=== PATIENT | male | born 1955 | race Caucasian/White ===

== ENCOUNTER 2021-03-25 08:24 | Emergency (ER) | payer MEDICARE, OTHER, SELFPAY ==
[2021-03-25 08:40] VITALS: BP 158/74; PULSE 69; RESP 16; TEMP 36.6; O2SAT 100
--- NOTE | 2021-03-25 08:41 | ED.GENADULT ---
HPI - General Adult General Chief complaint: Medical Clearance Stated complaint: COVID Test tp Travel Time Seen by Provider: 03/25/21 08:41 Source: patient and RN notes reviewed Mode of arrival: ambulatory Limitations: no limitations History of Present Illness HPI narrative: 65-year-old male presents with complaints of needing to obtaining a COVID-19 swab to fly home to [facility]. Jose reports no symptoms and wanting a [id number]. Denies cough or chest congestion. No Rhinorrhea and nasal congestion. Denies fevers. No nausea, vomiting, and abdominal pain. Tolerating po intake well. Denies chest pain, coughing up blood, facial pain, and rash. The patient reports he have not been diagnosed with COVID-19. The patient reports he received 2 [employer] COVID-19 vaccines. The patient reports he is not waiting for the results of a COVID-19 lab test. The patient reports he do not have weakness, myalgia, or fatigue. The patient reports he do not have a worsening cough. The patient reports he do not have any loss of smell or taste or diarrhea. Denies recent traveling. Denies concerns for COVID-19 or exposures been home with limited outdoor exposure except for essential household needs and return home. At this time, patient is not suspected of having COVID-19. Some parts of this dictation were generated by voice recognition software and may contain typographical and/or grammatical inaccuracies. Related Data Home Medications Medication Instructions Recorded Confirmed Unable to Obtain Home Medications 03/25/21 03/25/21 Allergies Allergy/AdvReac Type Severity Reaction Status Date / Time No Known Allergies Allergy Unverified 07/23/14 14:05 Review of Systems Review of Systems: Narrative: CONSTITUTIONAL: Denies fever, chills, sweats. EYES: Denies visual changes, redness, discharge. ENT: Denies rhinorrhea, congestion, sore throat, otalgia. CARDIOVASCULAR: Denies chest pain, palpitations, edema. RESPIRATORY: Denies wheezing, dyspnea, cough. GASTROINTESTINAL: Denies abdominal pain, nausea, vomiting, diarrhea. GENITOURINARY: Denies dysuria, hematuria, abnormal discharge. SKIN: Denies rash or itching. MUSCULOSKELETAL: Denies acute back pain, joint pain, myalgia. NEUROLOGIC: Denies numbness or focal weakness. PSYCHIATRIC: Denies anxiety or depression, MARTÍNEZ. All systems reviewed & are unremarkable except as noted in HPI and below. [facility] Past Medical History Medical History (Updated 03/25/21 @ 10:14 by FAREED Delacruz) Diabetes Former smoker Hypertension Surgical History Surgical History (Updated 03/25/21 @ 08:56 by FAREED Delacruz) History of cervical spinal surgery History of spinal surgery Family History Family History (Updated 03/25/21 @ 08:58 by FAREED Delacruz) Father , Father 40 years ago Jose was 15 yrs old due to pancreatitis problems No problems noted. Mother Alive and well Social History Social History (Updated 03/25/21 @ 08:59 by FAREED Delacruz) Smoking status: Former smoker Tobacco type: cigarettes Second hand tobacco smoke exposure: Yes Alcohol intake: former Alcohol use details: Quit 3 years ago Substance use: never Substance use type: does not use Living arrangements: with family Occupation/Education: occupation Gender identity (if verbalized by the patient): Male Comments At time of signature, agree with nurse past medical, surgical, social, and family history. There is no relevant family history pertinent to the presenting complaint. Exam Narrative: Exam Narrative: GENERAL: This is a well-nourished, well-developed patient, in no apparent distress. Talks in full sentences and ambulates with steady gait without dyspnea. HEAD: Normocephalic, atraumatic. EYES: PERRL. Sclera clear/white. Vision is grossly intact. NOSE: External nose normal with no obvious nasal discharge, nares without redness or enlarge
[2021-03-26 16:58] LABS: SARS-CoV-2 RNA PCR Negative
== END 2021-03-25 09:21 | disposition home or self-care (01) ==
PROVIDERS: Emergency Provider Nurse Practitioner Family
DX: Z20.822 Contact with and (suspected) exposure to COVID-19 (principal); Z87.891 Personal history of nicotine dependence; E11.9 Type 2 diabetes mellitus without complications; I10 Essential (primary) hypertension
CPT/HCPCS: 99203; C9803; G0463; U0003; U0005